=== PATIENT | female | born 1970 | race Caucasian/White ===

== ENCOUNTER → 2017-09-02 13:54 | Outpatient (CLI) | payer MEDICAID, SELFPAY | PROVIDERS: Family Provider Internal Medicine; PCP Internal Medicine | DX: R00.2 Palpitations (principal) | CPT/HCPCS: 93225; 93226 ==

== ENCOUNTER 2017-10-21 17:00 | Outpatient (RCR) | payer MEDICAID, SELFPAY ==
--- NOTE | 2017-09-30 14:20 | HP.PTEVAL_ITS ---
Patient's Visit Information AMNA GIORDANO is a 47 year old F referred to Physical Therapy by Out of Town Doctor MICHAELA MARTINEZ with a diagnosis of Pain in R hip. Date of Evaluation: 09/30/17 Physical Therapist: Hiral Holloway - Visit Plan Frequency: 2x /Week Duration: 6 Weeks Plan: 2X/ week for 6 weeks for B hip strengtheing, postural exercises and core exercises, HS and pirifomis stretches with HEP - Subjective Subjective: Pt reports that both hips hurt but at the time it was just the R. If she walks a distance they get painful and feel like gonna give out on her. If she rolls over on her hips she will get sharp pains on the lateral side of the hips. 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 SHe also has CT. They have been hurting for about a year now. She has been seeing pain management for neck and back for about 3 years now. She has always done AT and she thought that it helped while in the pool but 3-5 hrs later it was hurting and the days that she did not come she was hurting pretty bad. She has pain going up and down the stairs and alot of times in a sitting position itll hurt when go to stand up and the pain will shoot into the groin. Pt has had shots in her back but her DM is not under control so she can not have them. Land therapy made her hurt worse. Pt has problems sleeping due to restroom and depression and hard to lay too long on her hips. - Pain R hip pain Pain Intensity (Out of 10): 6 L hip pain Pain Intensity (Out of 10): 4 - Objective Trunk Arom: flex 50%, ext 25%, SB B 50%. LE MMT: hip flex R 4/5 and L 4-/5, hip abd L 4-/5 and R 4/5, Able to do 1/2 normal ROM bridge with some increase pain. R knee flex 4/5 and L 4-/5, B knee ext 4/5. Pt is able to walk on heels and toes. Gait: Walks with short stride. Palpation: tender B greater trochanters. - Goals Goal 1:: I HEP Goal Time Frame: 6-8 Weeks Goal 2:: Increase B hip strength to 4/5 B hip abd, hip ext and hip flexion Goal Time Frame: 6-8 Weeks Goal 3:: Be able to transition from sitting to standing with 1/10 pain in B hips Goal Time Frame: 6-8 Weeks Goal 4:: Be able to go up and down stairs recip with 2 hand rails with smooth recip pattern with 1/10 pain or less. Goal Time Frame: 6-8 Weeks - Rehabilitation Potential Rehabilitation Potential: Good - Anticipated Interventions Patient/Client Instruction: Educate patient on: Plan of Care For the Purpose of:: To decrease pain, To decrease swelling/inflammation, To increase ROM, To improve nutrient delivery to tissue, To improve muscle performance and motor function, To improve ability to perform ADL's, To increase tolerance to activity/condition/position, To improve gait and locomotor functions, To improve health of tissue, To decrease soft tissue restriction, To increase flexibility/ROM Therapeutic Exercise to Include: Strength training, Postural training, Flexibilty training, Gait and locomotor training, In an aquatic setting, Passive ROM, Active ROM, Dynamic Lumbar Stabilization For the Purpose of:: To decrease pain, To decrease swelling/inflammation, To increase ROM, To increase oxygenation perfusion, To improve muscle performance and motor function, To improve ability to perform ADL's, To increase tolerance to activity/condition/position, To improve ability of physical actions for home/ community/work/leisure, To improve health of tissue, To decrease soft tissue restriction Thank you for the opportunity to evaluate your patient. For Medicare and Medicare HMO plans, please review the plan of care and approve it. It will need to be FAXED BACK to us at [phone] for Medicare purposes. Please let me know if there are questions or concerns regarding this plan of care. Physician Signature: Date:
--- NOTE | 2018-03-12 17:21 | HP.PTDCNRP_ITS ---
HP - Discharge Summary (1) - Patient Information AMNA GIORDANO was seen in my office for initial evaluation on 09/30/17. The following Plan of Care was established for this patient: Initial Frequency: 2x /Week Initial Duration: 6 Weeks - Anticipated Interventions Patient/Client Instruction: Educate patient on: Plan of Care For the Purpose of:: To decrease pain, To decrease swelling/inflammation, To increase ROM, To improve nutrient delivery to tissue, To improve muscle performance and motor function, To improve ability to perform ADL's, To increase tolerance to activity/condition/position, To improve gait and locomotor functions, To improve health of tissue, To decrease soft tissue restriction, To increase flexibility/ROM Therapeutic Exercise to Include: Strength training, Postural training, Flexibilty training, Gait and locomotor training, In an aquatic setting, Passive ROM, Active ROM, Dynamic Lumbar Stabilization For the Purpose of:: To decrease pain, To decrease swelling/inflammation, To increase ROM, To increase oxygenation perfusion, To improve muscle performance and motor function, To improve ability to perform ADL's, To increase tolerance to activity/condition/position, To improve ability of physical actions for home/ community/work/leisure, To improve health of tissue, To decrease soft tissue restriction This patient was last seen in our office 10/21/17. Pertinent comments regarding their Physical therapy will appear below: DC PT as pt does not have babysitting to come to PT. At this point I will be discontinuing this patient from physical therapy. I would be happy to see this patient again in the future if found appropriate by the physician. Thank you! Hiral Holloway
== END 2017-10-21 19:00 | disposition home or self-care (01) ==
LOC: PT 17:00
PROVIDERS: Family Provider Internal Medicine; PCP Internal Medicine
DX: M25.551 Pain in right hip (principal)
CPT/HCPCS: 97113; 97161